=== PATIENT | male | born 1955 | race Caucasian/White ===

== ENCOUNTER 2017-05-08 15:15 | Emergency (ER) | payer OTHER ==
[2017-05-08] MEDS ORDERED: HYDROcodone/ACETAMINOPHEN 1 EACH TABLET PO ONE (15:38)
[2017-05-08] MEDS ORDERED: HYDROcodone/ACETAMINOPHEN 1 EACH TABLET ONE (15:40)
--- NOTE | 2017-05-08 15:44 | ERNOTE ---
Upper Extremity HPI - General Extremities Pain Location: wrist: right Time Seen by Provider: 05/08/17 15:28 Source: patient Exam Limitations: no limitations - Immun/Allergies/Home Medications Immunizations: IMMUNIZATION HX Immunizations Up to Date Yes History of Influenza Vaccine No Allergies/Adverse Reactions: Allergies Allergy/AdvReac Type Severity Reaction Status Date / Time No Known Allergies Allergy Unverified 05/08/17 15:35 Home Medications: HOME MEDICATIONS Calcium Carbonate/Vitamin D3 [Calcarb 600 With Vitamin D] 1 tab PO BID 05/08/17 [Last Taken Unknown] Ciprofloxacin HCl [Cipro] 500 mg PO DAILY 05/08/17 [Last Taken Unknown] Cyanocobalamin [Vitamin B-12] 1,000 mcg PO DAILY 05/08/17 [Last Taken Unknown] Enzalutamide [Xtandi] 160 mg PO DAILY 05/08/17 [Last Taken Unknown] Folic Acid 1 mg PO DAILY 05/08/17 [Last Taken Unknown] Furosemide 20 mg PO DAILY 05/08/17 [Last Taken Unknown] HYDROcodone/ACETAMINOPHEN [Hydrocodon-Acetaminophen 5-325] 1 each PO Q6H PRN [Last Taken Unknown] Hydroxychloroquine Sulfate 400 mg PO DAILY 05/08/17 [Last Taken Unknown] Lactulose [Enulose] 27 ml PO DAILY 05/08/17 [Last Taken Unknown] Nadolol [Corgard] 40 mg PO BID 05/08/17 [Last Taken Unknown] Ondansetron [Zofran Odt] 8 mg PO Q8H PRN 05/08/17 [Last Taken Unknown] Rifaximin [Xifaxan] 550 mg PO BID 05/08/17 [Last Taken Unknown] Spironolactone 50 mg PO DAILY 05/08/17 [Last Taken Unknown] Thiamine HCl [Vitamin B-1] 100 mg PO DAILY 05/08/17 [Last Taken Unknown] Zinc Sulfate 220 mg PO BID 05/08/17 [Last Taken Unknown] - History of Present Illness Narrative: Patient has a history of prostate cancer with bone metastasis and alcoholic liver cirrhosis. 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 The pain did not start till about an hour later and is severe now Date (Duration): 09/23/17 Time (Timing): 12:00 Occurred: this afternoon Severity: severe Method of Injury: Reports: twisted Loss of Consciousness: Reports: no loss of consciousness Associated Symptoms: Denies: tingling, weakness, numbness distally Other Injuries: Reports: none Review of Systems - Review of Systems Constitutional: Absent: recent illness, fever, malaise Respiratory: Absent: shortness of breath Cardiology: Absent: chest pain Gastrointestinal/Abdominal: Absent: nausea, abdominal pain Genitourinary: Present: no symptoms reported Musculoskeletal: Present: See HPI Neurological: Absent: weakness, numbness - Patient's Past Medical History Patient History - Medical: Liver Disease - cirrhosis Patient History - Cardiac/Respiratory: Hypertension, Hyperlipidemia Patient History - Cancer: Bone, Esophageal, Liver, Prostate, Chemotherapy history, Radiation Therapy Patient History - Surgical Procedures: T & A, Orthopedic Patient History - Other: None - Social History Living Situations: home Smoking Status: Never smoker Alcohol Use: sober - since 2010 Drug Use: marijuana - Immunizations Immunizations Up to Date: Yes History of Influenza Vaccine: No Physical Exam - Physical Exam General Appearance: Present: wd/wn, alert, no apparent distress Respiratory: Present: no respiratory distress, no accessory muscle use, lungs clear Cardiovascular/Chest: Present: regular rate, rhythm Peripheral Pulses: N=norm/S=strong/W=weak/B=bound/A=absent: Radial (L): Normal Extremity Exam: Present: normal inspection, normal except - - left wrist tender over radial aspect, pain on ROM, decreased range of motion Neurological Exam: Present: alert, oriented, normal mood/affect, no motor/ sensory deficits Skin Exam: Present: normal color, warm/dry ED Progress - Vital Signs Patient's Vital Signs:: I have reviewed the patient's vital signs. Vital Signs: Vital Signs 05/08/17 15:16 Temperature 37.1 C Pulse Rate 86 Respiratory 14 Rate Blood Pressure 87/55 O2 Sat by Pulse 98 Oximetry - X-Ray X-Ray #1 X-Ray: wrist - no bony inury Interpretation: Reviewed by me X-ray Comments: discussed xray results with patient and family, patient is feeling better having wrist elevated and iced - Progress/Reassessment Chief Complaint: Wrist Injury/Pain Departure Clinical Impression: Left wrist sprain Qualifiers: Encounter type: initial encounter Qualified Code(s): S63.502A - Unspecified sprain of left wrist, initial encounter - Departure Disposition: Home self-care Condition: Good Instructions: Wrist Pain, [id number] Additional Instructions: keep the wrist elevated and iced Referrals: Rin Garcia MD [Primary Care Provider] - (as needed)
[2017-05-08 16:15] VITALS: BP 106/67
== END 2017-05-08 16:10 | disposition home or self-care (01) ==
LOC: ER 15:15
DX: S63.502A Unspecified sprain of left wrist, initial encounter (principal); X58.XXXA Exposure to other specified factors, initial encounter; Y93.H9 Activity, other involving exterior property and land maintenance, building and construction; Y92.9 Unspecified place or not applicable; K74.60 Unspecified cirrhosis of liver; I10 Essential (primary) hypertension; E78.5 Hyperlipidemia, unspecified; Z85.830 Personal history of malignant neoplasm of bone; Z85.01 Personal history of malignant neoplasm of esophagus; Z85.05 Personal history of malignant neoplasm of liver; Z85.46 Personal history of malignant neoplasm of prostate